=== PATIENT | male | born 1970 | race Caucasian/White ===

== ENCOUNTER 2021-12-04 18:33 | Emergency (ER) | payer BC, SELFPAY ==
[2021-12-04 18:40] VITALS: BP 141/77; PULSE 61; RESP 16; TEMP 36.7; O2SAT 98
--- NOTE | 2021-12-04 18:40 | ED.URI ---
HPI - URI/Sore Throat General Chief Complaint: Upper Respiratory Infection Stated Complaint: Sinus drainage/ fever Time Seen by Provider: 12/04/21 18:40 Source: patient and RN notes reviewed History of Present Illness HPI Narrative: Patient is 51-year-old male who presents the urgent care with his spouse with complaints of sinus drainage, low-grade fevers, headache and sinus pressure for the last 12 days. Patient states he has a history of sinus infections and they tend to come around this time of year. Patient went to another urgent care 5 days ago and has been taking a nasal spray, Mucinex and Zyrtec without any relief. Patient states he is now coughing up brown to yellow sputum. Patient is very adamant about antibiotics. Denies of any nausea or vomiting. Denies any chest pain, wheezing or cough. No other acute complaints. No acute distress noted. Patient and family aware of the plan of care. Some parts of this dictation were generated by voice recognition software and may contain typographical and/or grammatical inaccuracies. Related Data Home Medications Medication Instructions Recorded Confirmed azelastine 2 spray INTRANASAL BID 12/04/21 12/04/21 cetirizine 10 mg PO DAILY 12/04/21 12/04/21 Allergies Allergy/AdvReac Type Severity Reaction Status Date / Time simvastatin AdvReac Unknown Verified 12/04/21 19:06 Review of Systems Review of Systems: CONSTITUTIONAL: Reports of low-grade fever EYES: Denies visual changes, redness, or discharge. ENT: Reports of postnasal drainage, sinus congestion/pressure, rhinorrhea CARDIOVASCULAR: Denies chest pain, palpitations, or edema. RESPIRATORY: Denies cough or dyspnea. GASTROINTESTINAL: Denies abdominal pain, nausea, vomiting, or diarrhea. GENITOURINARY: Denies dysuria or hematuria. SKIN: Denies rash or itching. MUSCULOSKELETAL: Denies back pain, joint pain, or myalgia. NEUROLOGIC: Reports of intermittent headaches All other systems reviewed are negative, except as documented in HPI. PMFSH Comments At the time of my signature, I reviewed and agree with the nursing past medical, surgical, social, and family history. There is no relevant family history pertinent to the patient complaint. Exam Narrative: GENERAL: This is a well-nourished, well-developed patient, in no apparent distress. HEAD: normocephalic, atraumatic. EYES: PERRL. Sclera clear/white. Vision is grossly intact. EARS: External ears normal, auditory canals clear and without drainage, TMs normal without perforation. Hearing grossly intact. NOSE: External nose normal with no obvious nasal discharge, bilateral erythemic nares with clear to yellow rhinorrhea THROAT: Mucous membranes moist, posterior pharynx clear. Moderate postnasal drainage NECK: Neck supple CARDIOVASCULAR: Regular rate and rhythm without murmurs, gallops, or rubs. RESPIRATORY: Clear to auscultation. Breath sounds equal bilaterally. No wheezes, rales, or rhonchi. SKIN: warm, intact with no suspicious lesions or rash, good texture and turgor. NEURO: awake, alert, and oriented to person, place and time. There were no obvious focal neurologic abnormalities. EXTREMITIES: No clubbing, cyanosis, or edema. Course Course Level of Care: Express Care Visit Vital Signs Vital signs: Vital Signs Temperature 98.1 F 12/04/21 18:40 Pulse Rate 61 12/04/21 18:40 Respiratory Rate 16 12/04/21 18:40 Blood Pressure 141/77 H 12/04/21 18:40 Pulse Oximetry 98 12/04/21 18:40 Temperature 98.1 F 12/04/21 18:40 Pulse Rate 61 12/04/21 18:40 Respiratory Rate 16 12/04/21 18:40 Blood Pressure 141/77 H 12/04/21 18:40 Pulse Oximetry 98 12/04/21 18:40 Reviewed-patient is informed that they may have pre-hypertension or hypertension based on a blood pressure reading in the department. I recommend the patient call the primary care provider listed on their discharge instructions or a physician of their choice this week to arrange follow-up for
== END 2021-12-04 19:15 | disposition home or self-care (01) ==
PROVIDERS: Emergency Provider Nurse Practitioner Family
DX: J32.9 Chronic sinusitis, unspecified (principal); E78.00 Pure hypercholesterolemia, unspecified; M19.90 Unspecified osteoarthritis, unspecified site; Z96.649 Presence of unspecified artificial hip joint
CPT/HCPCS: 99213; G0463